=== PATIENT | male | born 1955 | race Caucasian/White ===

== ENCOUNTER 2020-12-03 01:28 | Day surgery (SDC) | payer BC, SELFPAY ==
[2020-11-21 13:24] VITALS: BMI 34.4
--- NOTE | 2020-12-03 07:49 | WPDANESEPPF ---
Anes - Initial Pre Proc Eval Procedure: Operation Date: 12/03/20 10:30 Proposed Procedures p Screening Colonoscopy - Shamir Glasgow MD Date/Time: 12/03/20 07:49 Surgeon: Shamir Glasgow MD Pre Op Diagnosis: neoplasm screening Patient Data Age: 65 Gender: M Height: 1.78 m Weight: 108.86 kg Allergies Allergy/AdvReac Type Severity Reaction Status Date / Time No Known Allergies Allergy Verified 12/03/20 10:11 Home Medications Medication Instructions Recorded Confirmed Type aspirin 81 mg tablet,delayed 81 mg PO DAILY 07/19/19 12/03/20 History release amlodipine 5 mg tablet 5 mg PO DAILY #90 tablet 10/29/20 12/03/20 Rx lisinopril 20 1 tablet PO DAILY #90 tablet 10/29/20 12/03/20 Rx mg-hydrochlorothiazide 12.5 mg tablet Patient hx anesthesia problems: none Family hx anesthesia problems: none PMFSH Past Medical History Medical History (System 08/07/20 @ 09:32 by Talisha Tavarez) Benign essential hypertension (~2011) Dyslipidemia Erectile dysfunction History of thyroid nodule 10/2012 - right thyroid nodule benign on FNAC 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 Seasonal allergies Surgical History Surgical History (System 08/07/20 @ 09:32 by Talisha Tavarez) History of repair of ACL 1992 - Right knee Family History Family History Grandparent , 60 Lung cancer Father Bladder cancer Social History Social History (System 08/07/20 @ 09:32 by Talisha Tavarez) Smoking status: Never smoker Second hand tobacco smoke exposure: No Alcohol intake: current Drinks per week: 6 Alcohol use details: 6 +/- alcohol beverages weekly Substance use: never Substance use type: does not use Living arrangements: with family 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 [employer] Gender identity (if verbalized by the patient): Male Spiritual care concerns: No Agree to blood products: Yes Anes - Eval Final PreProcedure Day of Procedure 12/03/20 07:49 Patient weight: obese Heart: regular rate and rhythm Lungs: clear to auscultation and normal air movement Airway: Mallampati scale class II Neurological: alert and oriented Last oral intake: >/= 8 hours ASA classification: III Emergent: no Anesthetic plan: proceed Anesthesia type and monitoring: general GIVS and standard monitoring Informed Consent: The patient's anesthetic plan and its attendant risks and benefits were discussed with the patient/family/POA. Questions were solicited and answers provided to the satisfaction of the patient/family/POA.
[2020-12-03 10:12] VITALS: BP 162/86; PULSE 62; RESP 20; TEMP 35.8; O2SAT 97; BMI 35.7
[2020-12-03] MEDS: LACTATED RINGERS 1,000 ML 150 ML IV CONT (10:24)
--- NOTE | 2020-12-03 10:48 | PM.HPGS ---
History of Present Illness History of Present Illness Consent: Risks, benefits, and alternatives have been discussed and questions answered. Patient agrees to proceed with procedure. Chief complaint: neoplasm screening Narrative: Sanket Curry is a 65 year old male here for first screening colonoscopy Review of Systems Constitutional: Constitutional: Denies headache(s) and Denies weakness Eyes: Eyes: Denies blurry vision ENT: Reports Normal hearing present, Denies headache(s) and Denies neck pain Cardiovascular: Cardiovascular: Denies chest pain and Denies dyspnea Respiratory: Respiratory: Denies dyspnea Gastrointestinal: Gastrointestinal: Reports no additional gastrointestinal complaints Genitourinary: Genitourinary: Denies dysuria Musculoskeletal: Musculoskeletal: Denies neck pain Integumentary/Breasts: Skin/Breast: Denies dry skin Neurologic: Reports Normal hearing present, Denies headache(s) and Denies weakness Psychiatric: Psychiatric: Denies anxiety Endocrine: Endocrine: Denies change in body appearance Hematologic/Lymphatic: Hematologic/Lymphatic: Denies easy bleeding Allergic/Immunologic: Allergic/Immunologic: Denies urticaria PMF Past Medical History Medical History (Updated 12/03/20 @ 10:48 by Shamir Glasgow MD) Benign essential hypertension (~2011) Colon cancer screening Dyslipidemia Erectile dysfunction History of thyroid nodule 10/2012 - right thyroid nodule benign on FNAC 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 Seasonal allergies Surgical History Surgical History (System 08/07/20 @ 09:32 by Talisha Tavarez) History of repair of ACL 1992 - Right knee Family History Family History Grandparent , 60 Lung cancer Father Bladder cancer Social History Social History (System 08/07/20 @ 09:32 by Talisha aTvarez) Smoking status: Never smoker Second hand tobacco smoke exposure: No Alcohol intake: current Drinks per week: 6 Alcohol use details: 6 +/- alcohol beverages weekly Substance use: never Substance use type: does not use Living arrangements: with family 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 [employer] Gender identity (if verbalized by the patient): Male Spiritual care concerns: No Agree to blood products: Yes Meds Home Medications and Allergies Home Medications Medication Instructions Recorded Confirmed Type aspirin 81 mg tablet,delayed 81 mg PO DAILY 07/19/19 12/03/20 History release amlodipine 5 mg tablet 5 mg PO DAILY #90 tablet 10/29/20 12/03/20 Rx lisinopril 20 1 tablet PO DAILY #90 tablet 10/29/20 12/03/20 Rx mg-hydrochlorothiazide 12.5 mg tablet Allergies Allergy/AdvReac Type Severity Reaction Status Date / Time No Known Allergies Allergy Verified 12/03/20 10:11 Vital Signs Vital Signs - 24 hr 12/03/20 10:12 Temperature 96.5 F L Pulse Rate 62 Respiratory Rate 20 Blood Pressure 162/86 H Pulse Oximetry 97 Exam Const: General: comfortable and no acute distress HENMT: General nose exam: Normal nares present Eyes: General: appearance normal, both eyes and all related structures Neck: Neck: no JVD Resp: Auscultation: clear to auscultation bilaterally Cardio: Rate: regular rate Rhythm: regular rhythm GI: Inspection: non-distended GI Palp: Yes Soft to palpation Skin: General skin exam: normal color Neuro: General: gait normal Speech: normal speech Extrem: General: normal to inspection Psych: Mental Status: mental status grossly normal Assessment and Plan Assessment and plan (1) Colon cancer screening: Code(s): Z12.11 - Encounter for screening for malignant neoplasm of colon Status: Acute Assessment and Plan: colonoscopy
[2020-12-03 11:15] VITALS: BP 103/68; PULSE 61; RESP 23; O2SAT 94
[2020-12-03 11:25] VITALS: BP 114/68; PULSE 60; RESP 25; O2SAT 93
[2020-12-03 11:35] VITALS: BP 132/77; PULSE 47; RESP 20; O2SAT 96
== END 2020-12-03 12:00 | disposition home or self-care (01) ==
PROVIDERS: PCP Family Medicine; Visit Provider Internal Medicine Gastroenterology
PROC: 0DJD8ZZ Inspection of Lower Intestinal Tract, Via Natural or Artificial Opening Endoscopic (ICD-10-PCS; CPT 45378; principal; 2020-12-03 10:30)
DX: Z12.11 Encounter for screening for malignant neoplasm of colon (principal); K64.8 Other hemorrhoids; D12.2 Benign neoplasm of ascending colon; D12.0 Benign neoplasm of cecum; D12.4 Benign neoplasm of descending colon; K63.5 Polyp of colon; E78.5 Hyperlipidemia, unspecified; Z86.718 Personal history of other venous thrombosis and embolism; Z79.82 Long term (current) use of aspirin; I10 Essential (primary) hypertension; E66.9 Obesity, unspecified; Z68.35 Body mass index [BMI] 35.0-35.9, adult
CPT/HCPCS: 45385; 88305; J2704; J7120

== ENCOUNTER 2022-10-30 10:29 | Outpatient (CLI) | payer MEDICARE, SELFPAY ==
[2022-10-30 13:01] LABS: Basophils Absolute Auto 0.1 K/mm3 (0.0-0.1); Basophils Percent Auto 1.2 % (0.2-1.2); Eosinophils Absolute Auto 0.1 K/mm3 (0-0.3); Eosinophils Percent Auto 1.7 % (0-4.4); Hematocrit 43.5 % (42.0-52.0); Hemoglobin 14.5 g/dL (14.0-18.0); Immature Granulocyte Absolute 0.01 K/mm3 (0.00-0.031); Immature Granulocyte Percent A 0.2 % (0-0.5); Lymphocytes Absolute Auto 1.79 K/mm3 (0.9-3.2); Lymphocytes Percent Auto 34.6 % (18.3-44.2); Mean Corpuscular HGB Conc 33.3 g/dl (32-36); Mean Corpuscular Hemoglobin 30.8 pg (26-34); Mean Corpuscular Volume 92.4 fl (80-100); Mean Platelet Volume 10.9 fl (7.4-10.4); Monocytes Absolute Auto 0.4 K/mm3 (0.1-0.6); Monocytes Percent Auto 6.9 % (2.6-8.5); Neutrophils Absolute Auto 2.9 K/mm3 (1.3-6.7); Neutrophils Percent Auto 55.4 % (45.5-73.1); Platelet Count Result 206 k/mm3 (150-375); Red Blood Count 4.71 M/mm3 (4.6-6.20); Red Cell Distribution Width 12.6 % (11.5-14.5); White Blood Count 5.2 K/mm3 (4.5-10.0)
[2022-10-30 13:14] LABS: Alanine Aminotransferase 23 U/L (6-50); Albumin Level 4.2 g/dL (3.5-5.1); Alkaline Phosphatase 73 U/L (38-126); Anion Gap 7 mmol/L (8-16); Aspartate Amino Transferase 27 U/L (17-59); Bilirubin,Total 0.6 mg/dL (0.2-1.3); Blood Urea Nitrogen 21 mg/dL (9-20); Calcium 8.5 mg/dL (8.4-10.2); Carbon Dioxide 27 mmol/L (22-30); Chloride 104 mmol/L (98-107); Cholesterol 204 mg/dL (0-200); Estimated Glomerular Filt Rate > 60; Glucose 110 mg/dL (65-110); HDL Direct 35 mg/dL; Potassium 4.3 mmol/L (3.4-5.0); Sodium 138 mmol/L (137-145); Triglycerides 160 mg/dL (<150)
[2022-10-30 13:25] LABS: LDL Cholesterol Direct 126 mg/dL
[2022-10-30 13:47] LABS: Prostate Specific Antigen 0.2 ng/mL (< OR = 4.0)
[2022-10-30 17:10] LABS: Hemoglobin A1C 5.5 % (<5.7)
== END 2022-10-30 10:30 | disposition home or self-care (01) ==
LOC: ANHGOSHLAB 10:31
PROVIDERS: PCP Family Medicine; Visit Provider Nurse Practitioner Family
DX: Z12.5 Encounter for screening for malignant neoplasm of prostate (principal); Z13.220 Encounter for screening for lipoid disorders; Z13.1 Encounter for screening for diabetes mellitus; I10 Essential (primary) hypertension; Z13.29 Encounter for screening for other suspected endocrine disorder
CPT/HCPCS: 36415; 80053; 80061; 83036; 84153; 84443; 85025; G0103

== ENCOUNTER → 2023-02-25 13:22 | Outpatient (CLI) | payer MEDICARE, SELFPAY ==
--- NOTE | ~2023-02-25 | XR_ITS ---
EXAMINATION: XR chest 2V 02/25/2023 13:32 INDICATION: Cough and shortness of breath PROCEDURE: 2 view chest COMPARISON: 10/02/2012 FINDINGS: The lungs are clear. The cardiomediastinal silhouette is within normal limits. There are no pleural effusions. There is no pneumothorax suspected. IMPRESSION: 1: NO ACUTE CARDIOPULMONARY DISEASE. Reviewed, dictated and finalized at location B. 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
== END ==
PROVIDERS: PCP Emergency Medicine; Visit Provider Emergency Medicine
DX: R05.9 Cough, unspecified (principal); R06.02 Shortness of breath
CPT/HCPCS: 71046

== ENCOUNTER 2024-03-08 00:21 | Day surgery (SDC) | payer MEDICARE, SELFPAY ==
[2024-02-26 11:25] VITALS: BMI 34.9
--- NOTE | 2024-03-01 16:29 | PC.NURSE ---
Spoke with PATIENT regarding medication ELIQUIS. Pt. verbalizes understanding that the last dose of is to be taken on 03/05/2024 and the Endoscopist will instruct them when to restart after the procedure.
[2024-03-08 10:15] VITALS: BP 138/90; PULSE 77; RESP 18; TEMP 36.1; O2SAT 95
[2024-03-08] MEDS: LACTATED RINGERS 1,000 ML 150 ML IV CONT (10:25)
--- NOTE | 2024-03-08 10:37 | WPDANESEPPF ---
Anes - Initial Pre Proc Eval Procedure: Operation Date: 03/08/24 11:30 Proposed Procedures p Colonoscopy - Shamir Glasgow MD Date/Time: 03/08/24 10:37 Surgeon: Shamir Glasgow MD Pre Op Diagnosis: Pers. Hx. Of colon polyps Patient Data Age: 68 Gender: M Height: 1.77 m Weight: 111.4 kg Last Vital Signs Temp 36.1 C L 03/08/24 10:15 Pulse 77 03/08/24 10:15 Resp 18 03/08/24 10:15 BP 138/90 03/08/24 10:15 Pulse Ox 95 03/08/24 10:15 O2 Del Method Room Air 03/08/24 10:15 Allergies Allergy/AdvReac Type Severity Reaction Status Date / Time No Known Allergies Allergy Verified 02/26/24 11:22 Home Medications Medication Instructions Recorded Confirmed Type cetirizine 10 mg tablet (All Day 10 mg PO DAILY 06/03/21 03/08/24 History Allergy (cetirizine)) aspirin 81 mg tablet,delayed 81 mg PO DAILY 05/05/22 03/08/24 History release apixaban 5 mg tablet (Eliquis) 5 mg PO BID 03/11/23 03/08/24 History lisinopril 20 1 tablet PO DAILY #90 tabs 08/05/23 03/08/24 Rx mg-hydrochlorothiazide 12.5 mg tablet sildenafil 50 mg tablet 50 mg PO DAILY PRN sexual activity 11/11/23 03/08/24 Rx #30 tabs amlodipine 5 mg tablet 5 mg PO DAILY #90 tabs 02/25/24 03/08/24 Rx Patient hx anesthesia problems: none Family hx anesthesia problems: none Results Review: All pre-operative results and documents have been reviewed as part of the pre-operative evaluation. 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 Pulmonary embolism Seasonal allergies Surgical History Surgical History History of repair of ACL 1992 - Right knee Family History Family History Grandparent , 60 Lung cancer Father Bladder cancer Father Family history of malignant neoplasm of urinary bladder Social History Social History Smoking status: Never smoker Second hand tobacco smoke exposure: No Alcohol intake: current Drinks per week: 6 Alcohol use details: BEER Substance use: never Substance use type: does not use Lack of Transportation: No Lack of Food: Never True Current Housing: I Have Housing Concerned About Future Housing: No Difficulty Paying Gas/Electric Bills: No Difficulty Paying for Meds: No Currently Unemployed: No Education: Bachelor's Degree Difficulty w/ Childcare or Family Care: No Living arrangements: with family Occupation/Education: retired 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 [employer] Gender identity (if verbalized by the patient): Male Sexual Orientation (if Verbalized by the Patient): Straight or Heterosexual Spiritual care concerns: No Agree to blood products: Yes Anes - Eval Final PreProcedure Day of Procedure 03/08/24 10:37 Patient weight: obese Heart: regular rate and rhythm Lungs: clear to auscultation Airway: Mallampati scale class II Neurological: alert and oriented Last oral intake: >/= 8 hours ASA classification: III Emergent: no Anesthetic plan: proceed Anesthesia type and monitoring: general GIVS and standard monitoring Results Review: All pre-operative results and documents have been reviewed as part of the pre-operative evaluation. Informed Consent: The patient's anesthetic plan and its attendant risks and benefits were discussed with the patient/family/POA. Questions were solicited and answers provided to the satisfaction of the patient/family/POA.
--- NOTE | 2024-03-08 10:47 | P.HP_ITS ---
History of Present Illness History of Present Illness Consent: Risks, benefits, and alternatives have been discussed and questions answered. Patient agrees to proceed with procedure. Chief complaint: Pers. Hx. 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 Pulmonary embolism Seasonal allergies Surgical History Surgical History History of repair of ACL 1992 - Right knee Family History Family History Grandparent , 60 Lung cancer Father Bladder cancer Father Family history of malignant neoplasm of urinary bladder Social History Social History Smoking status: Never smoker Second hand tobacco smoke exposure: No Alcohol intake: current Drinks per week: 6 Alcohol use details: BEER Substance use: never Substance use type: does not use Lack of Transportation: No Lack of Food: Never True Current Housing: I Have Housing Concerned About Future Housing: No Difficulty Paying Gas/Electric Bills: No Difficulty Paying for Meds: No Currently Unemployed: No Education: Bachelor's Degree Difficulty w/ Childcare or Family Care: No Living arrangements: with family Occupation/Education: retired 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 [employer] Gender identity (if verbalized by the patient): Male Sexual Orientation (if Verbalized by the Patient): Straight or Heterosexual Spiritual care concerns: No Agree to blood products: Yes Meds Home Medications and Allergies Home Medications Medication Instructions Recorded Confirmed Type cetirizine 10 mg tablet (All Day 10 mg PO DAILY 06/03/21 03/08/24 History Allergy (cetirizine)) aspirin 81 mg tablet,delayed 81 mg PO DAILY 05/05/22 03/08/24 History release apixaban 5 mg tablet (Eliquis) 5 mg PO BID 12/06/23 12/03/24 History lisinopril 20 1 tablet PO DAILY #90 tabs 08/05/23 03/08/24 Rx mg-hydrochlorothiazide 12.5 mg tablet sildenafil 50 mg tablet 50 mg PO DAILY PRN sexual activity 11/11/23 03/08/24 Rx #30 tabs amlodipine 5 mg tablet 5 mg PO DAILY #90 tabs 02/25/24 03/08/24 Rx Allergies Allergy/AdvReac Type Severity Reaction Status Date / Time No Known Allergies Allergy Verified 02/26/24 11:22 Vital Signs Vital Signs - 24 hr 03/08/24 10:15 Temperature 97 F L Pulse Rate 77 Respiratory Rate 18 Blood Pressure 138/90 Pulse Oximetry 95 Oxygen Delivery Room Air Exam Const: General: comfortable and no acute distress HENMT: Face/Nose/Sinus: Normal nares present Eyes: General: appearance normal, both eyes and all related structures Neck: Neck: no JVD Resp: Auscultation: clear to auscultation bilaterally Cardio: Rate: regular rate Rhythm: regular rhythm GI: Inspection: non-distended GI Palp: Yes Soft to palpation Skin: General skin exam: normal color Neuro: General: gait normal Speech: normal speech Extrem: General: normal to inspection Psych: Mental Status: mental status grossly normal Assessment and Plan Assessment and plan (1) Adenomatous colon polyp: Code(s): D12.6 - Benign neoplasm of colon, unspecified Status: Acute Assessment and Plan: colonoscopy
[2024-03-08 11:05] VITALS: BP 99/82; PULSE 69; RESP 35; O2SAT 93
[2024-03-08 11:15] VITALS: BP 102/66; PULSE 65; RESP 22; O2SAT 93
[2024-03-08 11:25] VITALS: BP 114/67; PULSE 62; RESP 20; O2SAT 95
== END 2024-03-08 11:39 | disposition home or self-care (01) ==
PROVIDERS: PCP Family Medicine; Referring Provider Nurse Practitioner Family; Visit Provider Internal Medicine Gastroenterology
PROC: 0DJD8ZZ Inspection of Lower Intestinal Tract, Via Natural or Artificial Opening Endoscopic (ICD-10-PCS; CPT 45378; principal; 2024-03-08 11:30)
DX: Z12.11 Encounter for screening for malignant neoplasm of colon (principal); K64.8 Other hemorrhoids; I10 Essential (primary) hypertension; E78.5 Hyperlipidemia, unspecified; N52.9 Male erectile dysfunction, unspecified; E66.9 Obesity, unspecified; Z68.35 Body mass index [BMI] 35.0-35.9, adult; Z79.82 Long term (current) use of aspirin; Z79.01 Long term (current) use of anticoagulants; Z98.890 Other specified postprocedural states; Z86.0100 Personal history of colon polyps, unspecified; Z86.711 Personal history of pulmonary embolism; Z86.718 Personal history of other venous thrombosis and embolism; Z80.1 Family history of malignant neoplasm of trachea, bronchus and lung; Z80.52 Family history of malignant neoplasm of bladder
CPT/HCPCS: G0105; J2704; J7120

== ENCOUNTER 2025-01-05 10:42 | Outpatient (CLI) | payer MEDICARE, SELFPAY ==
--- OUTSIDE RECORDS SUMMARY | 2025-01-05 11:13 | XMS_ITS | Clinical Summary ---
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 Active aspirin 81 MG chewable tablet Chew 1 tablet (81 mg total) by mouth nightly. Active amLODIPine (NORVASC) 5 MG tablet Take 1 tablet (5 mg total) by mouth nightly. Active apixaban (ELIQUIS DVT/PE STARTER PACK) 5 MG tablet starter pack Take 2 tablets (10 mg total) by mouth 2 (two) times daily for 7 days, then take 1 tablet (5 mg total) by mouth 2 (two) times daily. 74 tablet 02/28/2023 Active pantoprazole EC (PROTONIX) 40 MG tablet Take 1 tablet (40 mg total) by mouth daily. 30 tablet 2 03/01/2023 Active apixaban (ELIQUIS) 5 MG tablet Take 1 tablet (5 mg total) by mouth 2 (two) times daily. 60 tablet 2 03/31/2023 Active Active Problems Problem Noted Date Diagnosed Date Pulmonary emboli (CMS/HCC HHS/HCC) 02/27/2023 Family History Medical History Relation Comments blood clots Sister Relation Status Comments Sister Social History Tobacco Use Types Packs/Day Years Used Date Smoking Tobacco: Never Smokeless Tobacco: Never Tobacco Cessation:Counseling Given: Not Answered Alcohol Use Standard Drinks/Week Comments Yes 0 (1 standard drink = 0.6 oz pur e alcohol) [facility] Utilities Answer Date Recorded In the past 12 months has [employer], [employer], oil, or water [employer] threatened to shut off services in your home? Patient declined 02/27/2023 Humiliation, Afraid, Rape, and Kick questionnair e Answer Date Recorded Within the last year, have y ou been afraid of your partner or ex-partner? Patient declined 02/27/2023 Within the last year, have y ou been humiliated or emotionally abused in other ways by your partner or ex-partner? Patient declined 02/27/2023 Within the last year, have y ou been kicked, hit, slapped, or otherwise physically hurt by your partner or ex-partner? Patient declined 02/27/2023 Within the last year, have y ou been raped or forced to have any kind of sexual activity by your partner or ex-partner? Patient declined 02/27/2023 Social Connection and Isolat ion Panel [NHANES] Answer Date Recorded In a typical week, how many times do you talk on the phone with family, friends, or neighbors? More than three times a week 02/27/2023 How often do you get togethe r with friends or relatives? Three times a week 02/27/2023 How often do you attend chur or judaism services? More than 4 times per year 02/27/2023 Do you belong to any clubs o r organizations such as muslim groups, unions, fraternal or athletic groups, or school groups? Yes 02/27/2023 How often do you attend meet ings of the clubs or organizations you belong to? More than 4 times per year 02/27/2023 Are you , , di vorced, , never , or living with a partner? 02/27/2023 AUDIT-C Answer Date Recorded Q1: How often do you have a drink containing alc ohol? 2-3 times a week 02/27/2023 Q2: How many drinks containi ng alcohol do you have on a typical day when you are drinking? 1 or 2 02/27/2023 Q3: How often do you have si x or more drinks on one occasion? Patient declined 02/27/2023 Overall Financial Resource Strain (CARDIA) Answe r Date Recorded How hard is it for you to pa y for the very basics like food, housing, medical care, and heating? Patient declined 02/27/2023 [facility] - Occupational Stress Questionnaire Answer Date Recorded Do you feel stress - tense, restless, nervous, or anxious, or unable to sleep at night because your mind is troubled all the time - these days? Patient declined 02/27/2023 Exercise Vital Sign Answer Date Recorde d On average, how many days pe r week do you engage in moderate to strenuous exercise (like a brisk walk)? 4 days 02/27/2023 On average, how many minutes do you engage in exercise at this level? 20 min 02/27/2023 Hunger Vital Sign Answer Date Recorded Within the past 12 months, y ou worried that your food would run out before you got the money to buy more. Patient declined Within the past 12 months, t he food you bought just didn't last and you didn't have money to get more. Patient declined PRAPARE - Transportation Answer Date Re corded In the past 12 months, has l ack of transportation kept you from medical appointments or from getting medications? Patient declined 02/27/2023 In the past 12 months, has l ack of transportation kept you from meetings, work, or from getting things needed for daily living? Patient declined 02/27/2023 Housing Stability Vital Sign Answer Eddie e Recorded In the last 12 months, was t here a time when you were not able to pay the mortgage or rent on time? Patient declined 02/28/20 23 In the last 12 months, how many places have you lived? 1 02/27/2023 In the last 12 months, was t here a time when you did not have a steady place to sleep or slept in a [facility] (including now)? Patient declined 02/27/2023 Sex and Gender Information Value Date Recorded Sex Assigned at Not on file Legal Sex Male 3:20 PM WEB SERVICES ARCHITECT Gender Identity Not on file Sexual Orientation Not on file Last Filed Vital Signs Vital Sign Reading Time Taken Comments Blood Pressure 137/80 03/01/2023 11:34 AM WEB SERVICES ARCHITECT Pulse 61 03/01/2023 11:34 AM WEB SERVICES ARCHITECT Temperature 36.6 C (97.9 F) 03/01/2023 8:40 AM WEB SERVICES ARCHITECT Respiratory Rate 20 03/01/2023 8:40 AM WEB SERVICES ARCHITECT Oxygen Saturation 95% 03/01/2023 11: 34 AM WEB SERVICES ARCHITECT Inhaled Oxygen Concentration - - Weight 106.5 kg (234 lb 12.8 oz) 03/01/2023 6:00 AM WEB SERVICES ARCHITECT Height 177.8 cm (5' 10) 02/27/2023 3:24 PM WEB SERVICES ARCHITECT Body Mass Index 33.69 02/27/2023 3:24 PM WEB SERVICES ARCHITECT Plan of Treatment Health Maintenance Due Date Last Done Comments Colorectal Cancer Screening Colonoscopy (10 Years) 1955 Hepatitis C 08/18/1973 Annual Medicare Wellness Visit 08/18/2020 COVID-19 Vaccine (4 - 2024-2 6 season) 2024 04/11/2021, 08/03/2020, 07/03/2020 Influenza Adult (#1) 2025 01/30/2020 RSV Immunization or 60+ Years (1 - 1-dose 75+ series) 08/18/2030 DTaP, Tdap and Td Vaccines ( 2 - Td or Tdap) 02/06/2032 02/05/2022 Zoster Vaccines Completed 02/05/2022, 04/11/2021 Pneumococcal Vaccine: 50+ Years Completed 05/05/2022 Meningococcal B Vaccine Aged Out No l onger eligible based on patient's age to complete this topic Meningococcal Vaccine Aged Out No octavio alvin eligible based on patient's age to complete this topic RSV Immunizations Under 20 Months Aged Out No longer eligible b ased on patient's age to complete this topic Goals Goal Patient Goal Type Associated Problems Recent Progress Patient-Stated? Author Health - patient able to perform ADLs independently Lifestyle No Francisco alfaro, Mina Pham, RN Insurance [facility] MEDICARE Advance Directives * Full Code (Latest Code Status on File) Date Activated Date Inactivated Comments 02/27/2023 8:35 PM 03/01/2023 3:02 PM Care Teams Molding Machine Operator Helper Relationship Specialty Start Date End Date None, Provider, PCP - General UNKNOWN PHYSICIAN SPECIALTY 02/27/23
--- OUTSIDE RECORDS SUMMARY | 2025-01-05 11:13 | XMS_ITS | Clinical Summary ---
Author Organization [facility] Address [address], [facility] [address] [place] [address] Phone Care Team Providers Care Data Reporting Analyst Name Role Phone Mendy Sneed MD Primary Care Provider Sarabjit Erickson MD Unavailable [phone] Allergies No known active allergies Medications amLODIPine (NORVASC) 5 MG Tablet Take 5 mg by mouth daily. 3 Active aspirin 81 MG Chewable Tablet Take 81 mg by mouth. Active lisinopril-hyd roCHLOROthiazi de (PRINZIDE, ZESTORETIC) 20-12.5 MG Tablet Take 1 Tablet by mouth daily. 3 Active Eliquis 5 MG TabletIndicati ons:Acute saddle pulmonary embolism without acute cor pulmonale TAKE 1 TABLET BY MOUTH 2 TIMES DAILY. IND:HISTORY OF DISEASE INVOLVING A THROMBOSIS OR AN EMBOLISM 180 Tablet 5 Active sildenafil citrate (VIAGRA) 50 MG Tablet TAKE ONE TABLET BY MOUTH APPROXIMATELY 30 MINUTES TO 4 HOUR BEFORE SEXUAL ACTIVITY. DO NOT USE MORE THAN ONE DOSE DAILY 5 Active Cetirizine HCl (ZYRTEC ALLERGY PO) Take by mouth. Act jerome Active Problems Problem Noted Date Diagnosed Date Acute saddle pulmonary embolism without acute co r pulmonale 03/20/2023 Hypertension Encounters Date Type Department Care Team Description 11/18/2024 9:15 AM CDT Office Visit [facility] [address] [phone] Callie Griffiths, SECURITY PROFESSIONAL, [employer]PAREL SALES LEADER Acute saddle pulmonary embolism without acute cor pulmonale (HCC) (Primary Dx); History of DVT (deep vein thrombosis); Heterozygous factor V Leiden mutation (HCC) 11/18/2024 9:00 AM CDT Lab [facility] [address] [phone] Sarabjit Erickson MD Lab, [facility] Acute saddle pulmonary embolism without acute cor pulmonale (HCC) 11/18/2024 Travel from Last 3 Months Immunizations Immunization Administration Dates Next Due Influenza Vaccine, Quadrivalent, PF 01/30/2020 Pneumococcal conjugate PCV20 , polysaccharide [id number] conjugate, adjuvant, PF 05/05/2022 TDAP Vaccine 02/05/2022 Zoster Vaccine Recombinant 02/05/2022,04/11/2021 Family History Relation Name Status Comments Father Alive Mother Alive Sister Alive blood clots Social History Tobacco Use Types Packs/Day Years Used Date Smoking Tobacco: Never Smokeless Tobacco: Never Tobacco Cessation:Counseling Given: Not Answered Alcohol Use Standard Drinks/Week Comments Yes 6 (1 standard drink = 0.6 oz pur e alcohol) Sex and Gender Information Value Date Recorded Sex Assigned at Not on file 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 Gender Identity Not on file Sexual Orientation Not on file Last Filed Vital Signs Vital Sign Reading Time Taken Comments Blood Pressure 156/84 11/18/2024 9:10 AM CDT Pulse 74 11/18/2024 9:10 AM CDT Temperature 36.7 C (98 F) 11/18/2024 9:10 AM CDT Respiratory Rate 18 11/18/2024 9:10 AM CDT Oxygen Saturation 96% 11/18/2024 9:10 AM CDT Inhaled Oxygen Concentration - - Weight 114.3 kg (251 lb 14.4 oz) 11/18/2024 9:10 AM CDT Height 177.8 cm (5' 10) 11/18/2024 9:10 AM CDT Body Mass Index 36.14 11/18/2024 9:10 AM CDT Plan of Treatment Upcoming Encounters Date Type Department Care Team (Late st Contact Info) Description 07/21/2025 9:30 AM CDT Lab [facility] [address] [phone] Lab, [facility] 07/21/2025 9:45 AM CDT Office Visit [facility] [address] [phone] Sarabjit Erickson MD [address] [place] [address] [place] [phone] Health Maintenance Due Date Last Done Comments Hepatitis C Virus (HCV) Screening 1955 Cologuard 08/18/2000 Colonoscopy 08/18/2000 Colorectal Cancer Screening 08/18/2000 Immunochemical Fecal Occult Blood 08/18/2000 PSA Discussion 08/18/2010 Respiratory Syncytial Virus (RSV) Immunization (Adult) (1 - Risk 60-74 years 1-dose series) 2015 Influenza Immunization (#1) 2024 01/30/2020 SARS-COV-2 Immunization ( - season) 2024 04/11/2021, 08/03/2020, 07/03/2020 Td Immunization Every 10 Yea rs (Adults With 1 Tdap) 02/06/2032 02/05/2022 DTaP/Tdap/Td Immunization Discontinued 02/05/2022 Zoster Immunization Completed 02/05/2022, 04/11/2021 Pneumococcal Immunization (5 0+ years) Completed 05/05/2022 Hepatitis B Immunization Aged Out No longer eligible based on patient's age to complete this topic Human Papillomavirus (HPV) Immunization Aged Out No longer eligible based on patient's age to complete this topic Meningococcal Immunization (ACWY) Aged Out No longer eligible based on patient's age to complete this topic Rotavirus Immunization Aged Out No lo nger eligible based on patient's age to complete this topic Procedures Procedure Name Priority Date/Time Associated Diagnosis Comments CBC WITH AUTO DIFF [place] Routine 11/18/2024 9:04 AM CDT CMP (COMPREHENSIVE METABOLIC PANEL) Routine 11/18/2024 9:04 AM CDT Acute saddle pulmonary embolism without acute cor pulmonale (HCC) from Last 3 Months Results * (ABNORMAL) CBC WITH AUTO DIFF [place] (11/18/2024 9:04 AM CDT) WBC 5.2 4.0 - 10.0 10*3/uL [facility] HGB 14.3 13.7 - 17.5 g/dL [facility] SERVICE EDUC[facility] HCT 42.0 40.1 - 51.0 % CANCER IN SERVICE EDUCATOR [facility] PLT 190 163 - 369 10*3/uL CANCER IN SERVICE EDUCATOR [facility] MPV 10.5 9.4 - 12.4 fL CANCER IN SERVICE EDUCATOR [facility] RBC 4.63 4.63 - 6.08 10*6/uL CANCER IN SERVICE EDUCATOR [facility] MCV 91 79 - 95 fL [facility] MCH 30.9 25.6 - 32.2 pg CAN[facility] IN SERVICE EDUCATOR [facility] MCHC 34.0 32.2 - 36.5 g/dL CANCER IN SERVICE EDUCATOR [facility] RDW 12.6 11.6 - 14.4 % CAN[facility] IN SERVICE EDUCATOR [facility] Neutrophils % 58.2 36.0 - 66.0 % CANCER IN SERVICE EDUCATOR [facility] Lymphocytes % 31.9 19.0 - 40.0 % CANCER IN SERVICE EDUCATOR [facility] Monocytes % 7.1 4.1 - 12.1 % CANCER IN SERVICE EDUCATOR [facility] Eosinophils % 1.5 0.0 - 3.5 % CANCER IN SERVICE EDUCATOR [facility] Basophils % 1.1(H) 0.0 - 1.0 % CAN[facility] IN SERVICE EDUCATOR [facility] Absolute Neutrophils 3.0 1.4 - 6.6 10*3/uL CAN[facility] IN SERVICE EDUCATOR [facility] Absolute Lymphocytes 1.7 0.8 - 4.0 10*3/uL CANCER IN SERVICE EDUCATOR [facility] Absolute Monocytes 0.4 0.2 - 1.2 10*3/uL CANCER IN SERVICE EDUCATOR [facility] Absolute Eosinophils 0.1 0.0 - 0.4 10*3/uL [facility] Absolute Basophils 0.1 0.0 - 0.1 10*3/uL CANCER IN SERVICE EDUCATOR [facility] 11/18/2024 9:04 AM CDT Krystle Cutler SECURITY PROFESSIONAL, APPAREL SALES LEADER LAB SEND OUTS Final Result CAN[facility] IN SERVICE EDUCATOR [facility] [place] [address], * (ABNORMAL) CMP (COMPREHENSIVE METABOLIC PANEL) (11/18/2024 9:04 AM CDT) Glucose 119(H) 70 - 105 mg/dL [facility] Blood Urea Nitrogen 18 7 - 25 mg/dL [facility] Creatinine 1.0 0.7 - 1.3 mg/dL [facility] Sodium 139 136 - 145 mEq/L [facility] Potassium 4.2 3.5 - 5.1 mEq/L [facility] Chloride 106 98 - 107 mEq/L [facility] Bicarbonate 24 21 - 31 mEq/L [facility] Total Bilirubin 0.6 0.3 - 1.0 mg/dL [facility] Alk. Phosphatase 56 34 - 104 U/L [facility] Aspartate Aminotransferase 15 13 - 39 U/L [facility] Alanine Aminotransferase 16 7 - 52 U/L [facility] Total Protein 6.6 6.4 - 8.9 g/dL [facility] Albumin 4.4 3.5 - 5.7 g/dL [facility] Calcium 9.0 8.6 - 10.3 mg/dL [facility] Anion Gap 13.2 7.0 - 15.0 mEq/L [facility] Globulin 2.2 2.0 - 3.5 g/dL [facility] EGFR 81 >60 ml/min/1. 73m2 [facility] Comment: This eGFR is calculated using 2020 CKD-EPI Creatinine equation without race modifier based on the NKF-ASN task force recommendations Equation: tMBE=410*min(SCr/k,1)a*max(SCr/k,1)-1.200*0.9938Age*1.012 (if female), where SCr is serum creatinine, k is 0.7 for females and 0.9 for males, and a is -0.241 for females and -0.302 for males Blood 11/18/2024 9:04 AM CDT Narrative [facility] SERVICE EDUCATOR [facility] - 11/18/2024 9:53 AM CDT Release to patient->Immediate IS THE PATIENT REQUIRED TO BE FASTING FOR 8 HOURS?->No us Krystle Cutler SECURITY PROFESSIONAL, APPAREL SALES LEADER CHEMISTRY ORDERABLES Final Result CANCER IN SERVICE EDUCATOR [facility] [address] [place] [address], from Last 3 Months Insurance [facility] Care Teams Data Reporting Analyst Relationship Specialty Start Date End Date Mendy Sneed MD [address] [place] [address] [address] [place] [address] PCP - General Family Medicine 03/20/23 Sarabjit Erickson MD [address] [place] [phone] Consulting Physician Oncology 03/18/24
== END 2025-01-05 10:43 | disposition home or self-care (01) ==
LOC: ANHAUDIO 10:43
PROVIDERS: PCP Nurse Practitioner Family; Visit Provider Nurse Practitioner Family
DX: H90.3 Sensorineural hearing loss, bilateral (principal)
CPT/HCPCS: 92557; 92567